=== PATIENT | male | born 1930 | race Caucasian/White ===

== ENCOUNTER 2017-06-12 20:11 | Observation (INO) | payer OTHER, MEDICARE ==
[~2017-06-12] VITALS: Ht 172.7 cm; Wt 63.8 kg
[~2017-06-12 20:11] MED LIST: ALPHAGAN P100 DROP/5 BOTH EYES; ANALGESIC325 M1 PO; APRESOLINE25 MG PO; ASPIR-LOW81 MG PO; ASPIRIN EC325 MG PO; CLOPIDOGREL75 MG PO; DAILY VALUE1 EACH PO; DEXILANT60 MG PO; EFFIENT10 MG PO; IMDUR30 MG PO; LIVALO1 MG PO; LO-DOSE ASPIRIN81 M2 PO; MAGNESIUM OXID200 MG PO; METOPROLOL SUCC25 MG PO; NITROPASTE 2%1 GM TD; NITROQUICK0.4 MG SL; NITROSTAT0.4 MG SL; ONDANSETRON4 MG/2 ML IV; PANTOPRAZOLE SO40 MG PO; PLAVIX75 MG PO; PRILOSEC20 MG PO; PRILOSEC20.6 MG PO; RAMIPRIL2.5 MG PO; SORIATANE25 MG PO; SPIRIVA1 INHALATI IH; TOPROL XL50 MG PO; TRAVATAN 0.004%5 ML BOTH EYES; TRAVATAN Z5 ML BOTH EYES; TUMS500 MG PO; TYLENOL ARTHRI650 MG PO; Tums,OsCal PO; VIAGRA100 MG PO; [UNRECOGNIZED DRUG - OTHER] PO
[2017-06-12 21:34] LABS: BASOPHIL COUNT 0.1 K/uL (0-0.1); EOSINOPHIL (%) 8.2 % (0-5); EOSINOPHIL COUNT 0.5 K/uL (0-0.3); HEMATOCRIT 33.6 % (38.0-50.0); IMMATURE GRANULOCYTE (%) 0.3 % (0.0-0.7); INSTRUMENT ABS NEUTROPHIL CT 4.4 K/uL; MCH 29.5 PG (29.0-34.0); MCV 89.4 FL (86-99); MEAN PLAT.VOLUME 9.7 uM^3 (9.0-12.4); MONOCYTE (%) 9.5 % (3-12); MONOCYTE COUNT 0.6 K/uL (0-0.8); NEUTROPHIL (%) 66.8 % (45-76); NEUTROPHIL COUNT 4.4 K/uL (1.8-6.4); PLATELET COUNT 183 K/uL (156-360); RBC DIS.WIDTH-CV 12.9 % (11.8-14.6); RED BLOOD COUNT 3.76 M/uL (4.00-5.50); WHITE BLOOD COUNT 6.6 K/uL (4.1-10.2)
[2017-06-12 21:40] LABS: INTER. NORMALIZED RATIO 1.1
[2017-06-12 21:42] LABS: PTT 29.5 SEC (25-37)
[2017-06-12 21:43] LABS: CHLORIDE 108 mEq/L (99-109); SODIUM 143 mEq/L (136-147)
[2017-06-12 21:44] LABS: MAGNESIUM 1.8 mg/dL (1.3-2.7)
[2017-06-12 21:45] LABS: GLUCOSE 128 mg/dL (70-99)
[2017-06-12 21:47] LABS: ANION GAP 7 MEQ/L (2-14)
[2017-06-12 21:49] LABS: GFR ESTIMATE (CALCULATED) > 59 mL/min/
[2017-06-12 21:50] LABS: UREA NITROGEN (BUN) 20 mg/dL (9-23)
[2017-06-12 21:57] LABS: TROP-I INTERPRETATION NEGATIVE; TROPONIN-I 0.01 ng/mL (0.0-0.30)
[2017-06-12] MEDS ORDERED: REPATHA SY140 MG/1 M SC (23:11)
[2017-06-12] MEDS ORDERED: CLOBETASOL PROP50 ML TP (23:11)
[2017-06-12] MEDS ORDERED: BREO ELLIPTA I1 EACH IH (23:11)
[2017-06-13 03:52] VITALS: BP 132/72
[2017-06-13 05:21] VITALS: BP 177/92
[2017-06-13 05:25] VITALS: BP 116/77
[2017-06-13 05:31] VITALS: BP 119/70
[2017-06-13 06:36] LABS: TROP-I INTERPRETATION NEGATIVE; TROPONIN-I 0.02 ng/mL (0.0-0.30)
[2017-06-13 08:46] VITALS: BP 135/68
[2017-06-13 12:00] VITALS: BP 136/82
[2017-06-13 12:53] LABS: TROP-I INTERPRETATION NEGATIVE; TROPONIN-I 0.02 ng/mL (0.0-0.30)
== END 2017-06-13 14:06 | disposition home or self-care (01) ==
LOC: EME → EDBD 20:11 → EDOF 06-13 01:22 → 5WEST 06-13 01:22 → EDOF 06-13 01:22 → ENRESERV 06-13 01:27 → 5WEST 06-13 02:58
PROVIDERS: Emergency Medicine; Internal Medicine
DX: R07.9 Chest pain, unspecified (principal); I25.10 Atherosclerotic heart disease of native coronary artery without angina pectoris; J44.9 Chronic obstructive pulmonary disease, unspecified; I10 Essential (primary) hypertension; E78.2 Mixed hyperlipidemia; Z95.5 Presence of coronary angioplasty implant and graft; Z79.82 Long term (current) use of aspirin; Z85.820 Personal history of malignant melanoma of skin
CPT/HCPCS: 71010; 71275; 80048; 83735; 84484; 85025; 85610; 85730; 93005; 94640 76; 99281; 99284; G0378; J1650

== ENCOUNTER 2018-02-04 11:02 | Observation (INO) | payer OTHER, MEDICARE ==
[~2018-02-04] VITALS: Ht 172.7 cm; Wt 65.5 kg
[~2018-02-04 11:02] MED LIST changes: +BREO ELLIPTA I1 EACH IH; +CLOBETASOL PROP50 ML TP; -DAILY VALUE1 EACH PO; +MULTIVITAMIN W1 EAC7 PO; +REPATHA SY140 MG/1 M SC
[2018-02-04 11:28] LABS: HEMATOCRIT 40.4 % (38.0-50.0); HEMOGLOBIN 13.7 G/DL (12.5-16.6); MCH 30.4 PG (29.0-34.0); MCHC 33.9 G/DL (30.0-36.0); MCV 89.8 FL (86-99); RBC DIS.WIDTH-CV 12.4 % (11.8-14.6); RBC DIS.WIDTH-SD 40.3 % (39-53); WHITE BLOOD COUNT 9.6 K/uL (4.1-10.2)
[2018-02-04 11:46] LABS: CHLORIDE 102 mEq/L (99-109); POTASSIUM 4.9 mEq/L (3.7-5.4); SODIUM 138 mEq/L (136-147)
[2018-02-04 11:47] LABS: GLUCOSE 95 mg/dL (70-99)
[2018-02-04 11:51] LABS: CREATININE 0.9 mg/dL (0.6-1.3); GFR ESTIMATE (CALCULATED) > 59 mL/min/ (58.99-99999)
[2018-02-04 11:52] LABS: UREA NITROGEN (BUN) 25 mg/dL (9-23)
[2018-02-04 11:53] LABS: TROP-I INTERPRETATION NEGATIVE; TROPONIN-I 0.01 ng/mL (0.0-0.30)
[2018-02-04 12:26] LABS: PLAT.SUFFICIENCY ADEQUATE; PLATELET COUNT 154 K/uL (156-360)
[2018-02-04] MEDS ORDERED: NIACINAMIDE500 MG PO (12:43)
[2018-02-04] MEDS ORDERED: AZITHROMYCIN500 M1 PO (12:44)
[2018-02-04] MEDS ORDERED: TRAVATAN Z5 ML BOTH EYES (12:47)
[2018-02-04] MEDS ORDERED: METHYLPREDNISOLO4 MG PO (12:47)
[2018-02-04] MEDS ORDERED: ALBUTEROL2.5 MG/3 M IH (12:48)
[2018-02-04 14:19] VITALS: BP 166/75
[2018-02-04 16:35] LABS: TROP-I INTERPRETATION NEGATIVE; TROPONIN-I 0.02 ng/mL (0.0-0.30)
[2018-02-04 18:50] VITALS: BP 139/70
[2018-02-05] VITALS (7 sets, daily range): BP systolic 109–148; BP diastolic 61–95
[2018-02-05 05:29] LABS: HEMATOCRIT 34.7 % (38.0-50.0); HEMOGLOBIN 11.5 G/DL (12.5-16.6); MCH 29.7 PG (29.0-34.0); MCHC 33.1 G/DL (30.0-36.0); MCV 89.7 FL (86-99); PLATELET COUNT 201 K/uL (156-360); RBC DIS.WIDTH-CV 12.5 % (11.8-14.6); RBC DIS.WIDTH-SD 41.1 % (39-53); RED BLOOD COUNT 3.87 M/uL (4.00-5.50); WHITE BLOOD COUNT 9.1 K/uL (4.1-10.2)
[2018-02-05 05:42] LABS: TROP-I INTERPRETATION NEGATIVE; TROPONIN-I 0.02 ng/mL (0.0-0.30)
[2018-02-05 05:49] LABS: CHLORIDE 103 MEQ/L (99-109); CREATININE 0.9 MG/DL (0.6-1.3); GFR ESTIMATE (CALCULATED) > 59 mL/min/ (58.99-99999); GLUCOSE 107 mg/dL (70-99); SODIUM 141 MEQ/L (136-147); UREA NITROGEN (BUN) 26 mg/dL (9-23)
[2018-02-06 00:12] VITALS: BP 128/66
[2018-02-06 04:21] VITALS: BP 109/56
[2018-02-06 07:47] VITALS: BP 136/61
[2018-02-06 15:18] VITALS: BP 127/73
[2018-02-06] MEDS ORDERED: RANEXA500 MG PO (17:37)
== END 2018-02-06 18:56 | disposition home or self-care (01) ==
LOC: EME 11:02 → EDOF 12:25 → 4SOUTH 12:25 → ENRESERV 12:26 → 4SOUTH 14:03
PROVIDERS: Internal Medicine
DX: R07.9 Chest pain, unspecified (principal); I25.9 Chronic ischemic heart disease, unspecified; I25.10 Atherosclerotic heart disease of native coronary artery without angina pectoris; Z95.1 Presence of aortocoronary bypass graft; Z95.5 Presence of coronary angioplasty implant and graft; I10 Essential (primary) hypertension; E78.5 Hyperlipidemia, unspecified; I44.4 Left anterior fascicular block; I45.10 Unspecified right bundle-branch block; I35.0 Nonrheumatic aortic (valve) stenosis; I25.2 Old myocardial infarction; J44.9 Chronic obstructive pulmonary disease, unspecified; Z87.891 Personal history of nicotine dependence; Z85.828 Personal history of other malignant neoplasm of skin; K21.9 Gastro-esophageal reflux disease without esophagitis; Z79.82 Long term (current) use of aspirin; Z66 Do not resuscitate; Z82.3 Family history of stroke; Z80.0 Family history of malignant neoplasm of digestive organs
CPT/HCPCS: 71046; 78452; 80048; 84484; 85027; 93005; 93017; 93306; 94640; 94640 76; 99202; 99281; 99285; A9500; G0378; J1644; J2785; J7509

== ENCOUNTER 2018-02-26 16:27 | Observation (INO) | payer OTHER, MEDICARE ==
[~2018-02-26] VITALS: Ht 170.2 cm; Wt 64.5 kg
[~2018-02-26 16:27] MED LIST changes: +ALBUTEROL2.5 MG/3 M IH; +AZITHROMYCIN500 M1 PO; +METHYLPREDNISOLO4 MG PO; +NIACINAMIDE500 MG PO; +RANEXA500 MG PO
[2018-02-26 17:22] LABS: BASOPHIL (%) 0.4 % (0-1); EOSINOPHIL (%) 2.7 % (0-5); EOSINOPHIL COUNT 0.3 K/uL (0-0.3); HEMATOCRIT 38.3 % (38.0-50.0); IMMATURE GRANULOCYTE (%) 0.3 % (0.0-0.7); LYMPHOCYTE (%) 13.5 % (15-42); LYMPHOCYTE COUNT 1.4 K/uL (1.0-2.8); MCH 30.1 PG (29.0-34.0); MCHC 33.9 G/DL (30.0-36.0); MCV 88.7 FL (86-99); MONOCYTE (%) 8.8 % (3-12); MONOCYTE COUNT 0.9 K/uL (0-0.8); NEUTROPHIL (%) 74.3 % (45-76); NEUTROPHIL COUNT 7.5 K/uL (1.8-6.4); PLATELET COUNT 198 K/uL (156-360); RBC DIS.WIDTH-CV 12.4 % (11.8-14.6); RBC DIS.WIDTH-SD 40.5 % (39-53); RED BLOOD COUNT 4.32 M/uL (4.00-5.50); WHITE BLOOD COUNT 10.1 K/uL (4.1-10.2)
[2018-02-26 17:31] LABS: ALBUMIN 4.3 g/dL (3.2-4.8); CHLORIDE 104 mEq/L (99-109); SODIUM 143 mEq/L (136-147)
[2018-02-26 17:34] LABS: GLUCOSE 121 mg/dL (70-99); TOTAL PROTEIN 7.4 g/dL (6.4-8.3)
[2018-02-26 17:36] LABS: TOTAL BILIRUBIN 0.5 mg/dL (0.0-1.0)
[2018-02-26 17:37] LABS: ALKALINE PHOSPHATASE 41 IU/L (3-129); CREATININE 1.2 mg/dL (0.6-1.3); GFR ESTIMATE (CALCULATED) > 59 mL/min/ (58.99-99999)
[2018-02-26 17:38] LABS: UREA NITROGEN (BUN) 26 mg/dL (9-23)
[2018-02-26 17:39] LABS: AST (GOT) 19 IU/L (2-34)
[2018-02-26 17:40] LABS: ALT (GPT) 15 IU/L (3-49)
[2018-02-26 17:44] LABS: TROP-I INTERPRETATION NEGATIVE; TROPONIN-I 0.02 ng/mL (0.0-0.30)
[2018-02-26 20:47] LABS: TROP-I INTERPRETATION NEGATIVE; TROPONIN-I 0.02 ng/mL (0.0-0.30)
[2018-02-27 01:50] VITALS: BP 139/81
[2018-02-27 05:53] LABS: HDL CHOLESTEROL 43 MG/DL (Desirable>=40); LDL CHOLESTEROL 76 mg/dL (Desirable<100); NON-HDL CHOLESTEROL 89 mg/dL (Desirable<160); TOTAL CHOLESTEROL 132 mg/dL (Desirable<200); TRIGLYCERIDES 66 MG/DL (Normal: <150)
[2018-02-27 05:54] LABS: TROP-I INTERPRETATION NEGATIVE; TROPONIN-I 0.03 ng/mL (0.0-0.30)
[2018-02-27 07:30] VITALS: BP 116/68
[2018-02-27] MEDS ORDERED: NITROGLYCERIN1 EAC1 TD (13:52)
== END 2018-02-27 16:26 | disposition home or self-care (01) ==
LOC: EME 16:27 → EDOF 02-27 00:31 → ENRESERV 02-27 00:34 → 4SOUTH 02-27 01:36 → ENPENDDIS 02-27 14:00 → 4SOUTH 02-27 16:26
PROVIDERS: Emergency Medicine; Physician Assistant Medical
DX: R07.9 Chest pain, unspecified (principal); I25.810 Atherosclerosis of coronary artery bypass graft(s) without angina pectoris; I25.110 Atherosclerotic heart disease of native coronary artery with unstable angina pectoris; I25.2 Old myocardial infarction; R94.31 Abnormal electrocardiogram [ECG] [EKG]; J44.9 Chronic obstructive pulmonary disease, unspecified; I35.0 Nonrheumatic aortic (valve) stenosis; I10 Essential (primary) hypertension; E78.5 Hyperlipidemia, unspecified; Z87.891 Personal history of nicotine dependence; K21.9 Gastro-esophageal reflux disease without esophagitis; Z85.828 Personal history of other malignant neoplasm of skin; L40.9 Psoriasis, unspecified; H40.9 Unspecified glaucoma; Z87.820 Personal history of traumatic brain injury; Z95.5 Presence of coronary angioplasty implant and graft; Z79.02 Long term (current) use of antithrombotics/antiplatelets; Z79.82 Long term (current) use of aspirin; Z66 Do not resuscitate; Z88.8 Allergy status to other drugs, medicaments and biological substances; Z82.3 Family history of stroke; Z80.0 Family history of malignant neoplasm of digestive organs
CPT/HCPCS: 71046; 71275; 80053; 80061; 83735; 84484; 85025; 93005; 94640; 94640 76; 94760; 94799; 99202; 99281; 99284; G0378; J1644

== ENCOUNTER 2018-03-03 09:49 | Emergency (ER) | payer OTHER, MEDICARE ==
[~2018-03-03] VITALS: Ht 172.7 cm; Wt 65.0 kg
[~2018-03-03 09:49] MED LIST changes: +NITROGLYCERIN1 EAC1 TD
[2018-03-03 10:27] LABS: HEMATOCRIT 38.3 % (38.0-50.0); HEMOGLOBIN 13.2 G/DL (12.5-16.6); MCH 30.4 PG (29.0-34.0); MCHC 34.5 G/DL (30.0-36.0); MCV 88.2 FL (86-99); PLATELET COUNT 216 K/uL (156-360); RBC DIS.WIDTH-CV 12.4 % (11.8-14.6); RBC DIS.WIDTH-SD 40.1 % (39-53); RED BLOOD COUNT 4.34 M/uL (4.00-5.50); WHITE BLOOD COUNT 8.6 K/uL (4.1-10.2)
[2018-03-03 10:41] LABS: CHLORIDE 102 mEq/L (99-109); POTASSIUM 4.2 mEq/L (3.7-5.4); SODIUM 139 mEq/L (136-147)
[2018-03-03 10:42] LABS: GLUCOSE 115 mg/dL (70-99)
[2018-03-03 10:46] LABS: CREATININE 1.1 mg/dL (0.6-1.3); GFR ESTIMATE (CALCULATED) > 59 mL/min/ (58.99-99999)
[2018-03-03 10:47] LABS: UREA NITROGEN (BUN) 24 mg/dL (9-23)
[2018-03-03 11:24] LABS: TROP-I INTERPRETATION NEGATIVE; TROPONIN-I 0.01 ng/mL (0.0-0.30)
[2018-03-03] MEDS ORDERED: EFFIENT5 MG PO (16:03)
[2018-03-03 17:45] VITALS: BP 130/96
== END 2018-03-03 18:21 | disposition short-term general hospital (02) ==
LOC: EME 09:49
DX: J44.1 Chronic obstructive pulmonary disease with (acute) exacerbation (principal); R09.02 Hypoxemia; I45.2 Bifascicular block; R94.31 Abnormal electrocardiogram [ECG] [EKG]; I10 Essential (primary) hypertension; K21.9 Gastro-esophageal reflux disease without esophagitis; E78.5 Hyperlipidemia, unspecified; I25.2 Old myocardial infarction; Z79.82 Long term (current) use of aspirin; Z87.891 Personal history of nicotine dependence; Z95.1 Presence of aortocoronary bypass graft; Z85.828 Personal history of other malignant neoplasm of skin; Z88.8 Allergy status to other drugs, medicaments and biological substances
CPT/HCPCS: 71046; 80048; 84484; 85027; 93005; 94640; 99281; 99284; J2930